=== PATIENT | male | born 1965 | race Hispanic/Latino ===

== ENCOUNTER 2021-05-09 07:17 | Observation (INO) | payer OTHER ==
--- OUTSIDE RECORDS SUMMARY | 2021-05-09 07:21 | XMS REPORT | Continuity of Care Document ---
:1965 Author Organization [facility] t Address [address] [place] [address] Care Team Providers Name Role Phone Kallie AL, A Primary Care Physician EL Attending Clinician Unavailable PHILIPPE Attending Clinician Unavailable JULIO Attending Clinician Unavailable Fabian AL Attending Clinician Kallie AL, A Attending Clinician Trell GOMES, A Attending Clinician El AL Attending Clinician MARYAM Attending Clinician Unavailable HIPOLITO DOMINGUEZ Attending Clinician Unavailable Cinthya KATE Attending Clinician Unavailable Carine HERMOSILLO Attending Clinician Unavailable Carlito AL Attending Clinician Doctor Unassigned, Name Attending Clinician Unavailable Alfreda REYES Attending Clinician Unavailable Blaze TRONCOSO Attending Clinician Unavailable MARYAM Admitting Clinician Unavailable HIPOLITO DOMINGUEZ Admitting Clinician Unavailable Cinthya KATE Admitting Clinician Unavailable Payers Payer Name Policy Policy Number Effective Expiration Source Type Date Date [place] [id number] 2018 [facility] [id number] 2018- PresentHMO/PPO/POS Problems Condition Condition Condition Status Onset Resolution Last Treating Co mments Source Name Details Category Date Date Treatment Clinician Date Hyponatrem Hyponatrem Disease Active 2020-03 U nivers ia ia 2-09 ity of 00:00: [address] Branch Acute Acute Disease Active 2020-03 Univers appendicit appendicit 2-08 it y of is is 00:00: [place] 00 Medical Branch Fatty Fatty Disease Active Univers liver liver 2-21 ity of 00:00: Medical Branch Elevated Elevated Disease Active Unive rs alkaline alkaline 2-03 ity of phosphat[place] e level 00 Medical Branch Iron Iron Disease Active [facility] deficiency deficiency 5-21 it y of 00:00: Medical Branch Diarrhea Diarrhea Disease Active Unive rs 7-15 ity of 00:00: [place] [facility] ED ED Disease Active 2017-03 Univers (erectile (erectile 0-08 ity of dysfunctio dysfunctio [place]: [place] n[place] 00 [facility] Anemia, Anemia, Disease Active Univers unspecifie unspecifie 6-29 it y of d type d type 00:00: Medical Branch Foot Foot Disease Active Overview: Univer s swelling swelling 6 Formattin ity of 00:00: g of this note Medical might be Branch different from the original. right Right Right Disease Active Univers shoulder shoulder 6-27 ity of pain, pain, 00:00: [place] unspecifie unspecifie 00 Me dical d d Branch chronicity chronicity Onychomyco Onychomyco Disease Active Overview : Univers sis of sis of 07 Formattin ity of toenail toenail 00:00: g of this note Medical might be Branch different from the original. 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 [place] of arthritis [place] right of right Medica l shoulder shoulder Branch region region History of History of Disease Resolve 2017-06-18 2017-06-18 Univers osteomyeli osteomyeli d 05-11 00:00:00 13:27:59 ity of tis tis 00:00: [place] 00 [facility] DKA DKA Disease Resolve [id number] 2017-06-18 Univers (diabetic (diabetic d 05-14 00:00:00 13:27:06 ity of ketoacidos ketoacidos [place]: [place] es[place] [address] [place] [address] Allergies, Adverse Reactions, Alerts Allergy Allergy Status Severity Reaction(s) Onset Inactive Treating Comm ents Source Name Type Date Date Clinician NO KNOWN Drug Active Univers ALLERGIE Class ity of S [facility] Social History Social Habit Start Date Stop Date Quantity Comments Source Exposure to Not sure [facility] SARS-CoV-2 (event) [facility] History of tobacco Cigarette Smoker University of use [facility] Alcohol intake 2021-03-17 2021-03-17 Current University of 00:00:00 00:00:00 non-drinker of [facility] [place] [facility] alcohol [place] (finding) Tobacco Comment 2019-04-10 2019-04-10 quit smoking in [facility] ersity of 00:00:00 00:00:00 2006 [facility] Cigarettes smoked 2017-03-13 2017-03-13 Univers ity of current (pack per 00:00:00 00:00:00 ) - Reported Branch Cigarette 2017-03-13 2017-03-13 University of pack-years 00:00:00 00:00:00 [facility] Tobacco use and 2017-03-13 2017-03-13 Former user Universi ty of exposure 00:00:00 00:00:00 [facility] Sex [birth year] Universit y of 00:00:00 00:00:00 [facility] Smoking Status Start Date Stop Date Source Former smoker 2017-03-13 00:00:00 2017-03-13 00:00:00 [facility] [place] [facility] Medications Ordered Filled Start Stop Current Ordering Indication Dosage Frequency Signature Comments Components Source Medication Medication Date Date Medication? Clinician (SIG) Name Name GLIMEPIRIDE Yes [id number] TAKE 1 Univers 4 mg tablet 2-08 TABLET BY ity of 00:00: MOUTH [place] 00 TWICE Medical DAILY Branch BEFORE BREAKFAST AND BEFORE SUPPER CARVEDILOL Yes [id number] Take 1 U nivers 12.5 mg 2-08 tablet by ity of tablet 00:00: mouth [place] 00 twice Medical daily Branch GLIMEPIRIDE Yes [id number] TAKE 1 Univers 4 mg tablet 2-08 TABLET BY ity of 00:00: MOUTH [place] 00 TWICE Medical DAILY Branch BEFORE BREAKFAST AND BEFORE SUPPER pantoprazol 2020-03 Yes [id number] 40mg Take 1 Univers e 40 mg EC 2-30 tablet by ity of tablet 00:00: mouth [place] 00 daily. Medical Branch pantoprazol 2020-03 Yes [id number] 40mg Take 1 Univers e 40 mg EC 2-30 tablet by ity of tablet 00:00: mouth [place] 00 daily. Medical Branch pantoprazol 2020-03 Yes [id number] 40mg Take 1 Univers e 40 mg EC 2-30 tablet by ity of tablet 00:00: mouth [place] 00 daily. Medical Branch pantoprazol 2020-03 Yes [id number] 40mg Take 1 Univers e 40 mg EC 2-30 tablet by ity of tablet 00:00: mouth [place] 00 daily. Medical Branch pantoprazol 2020-03 Yes [id number] 40mg Take 1 Univers e 40 mg EC 2-30 tablet by ity of tablet 00:00: mouth [place] 00 daily. Medical Branch pantoprazol 2020-03 Yes [id number] 40mg Take 1 Univers e 40 mg EC 2-30 tablet by ity of tablet 00:00: mouth [place] 00 daily. Medical Branch pantoprazol 2020-03 Yes [id number] 40mg Take 1 Univers e 40 mg EC 2-30 tablet by ity of tablet 00:00: mouth [place] 00 daily. Medical Branch pantoprazol 2020-03- Yes [id number] 40mg Take 1 Univers e 40 mg EC 2-10 01-10 tablet by ity of tablet 00:00: 05:59 mouth [place] 00 :00 daily for Medical 30 days. Branch pantoprazol 2020-03- Yes [id number] 40mg Take 1 Univers e 40 mg EC 2-10 01-10 tablet by ity of tablet 00:00: 05:59 mouth [place] 00 :00 daily for Medical 30 days. Branch ondansetron 2020-03 Yes [id number] 4mg Take 1 Univers (ZOFRAN 2-07 tablet by ity of ODT) 4 mg 00:00: mouth [place] disintegrat 00 every 8 Medic al ing tablet (eight) Branch hours as needed for Nausea and Vomiting (N/V). ondansetron 2020-03 Yes [id number] 4mg Take 1 Univers (ZOFRAN 2-07 tablet by ity of ODT) 4 mg 00:00: mouth [place] disintegrat 00 every 8 Medic al ing tablet (eight) Branch hours as needed for Nausea and Vomiting (N/V). ondansetron 2020-03 Yes [id number] 4mg Take 1 Univers (ZOFRAN 2-07 tablet by ity of ODT) 4 mg 00:00: mouth [place] disintegrat 00 every 8 Medic al ing tablet (eight) Branch hours as needed for Nausea and Vomiting (N/V). ondansetron 2020-03 Yes [id number] 4mg Take 1 Univers (ZOFRAN 2-07 tablet by ity of ODT) 4 mg 00:00: mouth [place] disintegrat 00 every 8 Medic al ing tablet (eight) Branch hours as needed for Nausea and Vomiting (N/V). ondansetron 2020-03 Yes [id number] 4mg Take 1 Univers (ZOFRAN 2-07 tablet by ity of ODT) 4 mg 00:00: mouth [place] disintegrat 00 every 8 Medic al ing tablet (eight) Branch hours as needed for Nausea and Vomiting (N/V). ondansetron 2020-03 Yes [id number] 4mg Take 1 Univers (ZOFRAN 2-07 tablet by ity of ODT) 4 mg 00:00: mouth [place] disintegrat 00 every 8 Medic al ing tablet (eight) Branch hours as needed for Nausea and Vomiting (N/V). ondansetron 2020-03 Yes [id number] 4mg Take 1 Univers (ZOFRAN 2-07 tablet by ity of ODT) 4 mg 00:00: mouth [place] disintegrat 00 every 8 Medic al ing tablet (eight) Branch hours as needed for Nausea and Vomiting (N/V). insulin NPH 0 Yes 30U inject 30 U nivers 100 unit/mL 7-26 Units ity of injection 00:00: under the [place] 00 skin every Medical morning Branch and evening. REPLACES LANTUS. insulin NPH 0 Yes 30U inject 30 U nivers 100 unit/mL 7-26 Units ity of injection 00:00: under the [place] 00 skin every Medical morning Branch and evening. REPLACES LANTUS. insulin NPH 0 Yes 30U inject 30 U nivers 100 unit/mL 7-26 Units ity of injection 00:00: under the [place] 00 skin every Medical morning Branch and evening. REPLACES LANTUS. insulin NPH 0 Yes 30U inject 30 U nivers 100 unit/mL 7-26 Units ity of injection 00:00: under the [place] 00 skin every Medical morning Branch and evening. REPLACES LANTUS. insulin NPH 0 Yes 30U inject 30 U nivers 100 unit/mL 7-26 Units ity of injection 00:00: under the [place] 00 skin every Medical morning Branch and evening. REPLACES LANTUS. insulin NPH 0 Yes 30U inject 30 U nivers 100 unit/mL 7-26 Units ity of injection 00:00: under the [place] 00 skin every Medical morning Branch and evening. REPLACES LANTUS. insulin NPH 0 Yes 30U inject 30 U nivers 100 unit/mL 7-26 Units ity of injection 00:00: under the [place] 00 skin every Medical morning Branch and evening. REPLACES LANTUS. glimepiride 2020-0 Yes [id number] 4mg Take 1 Univers 4 mg tablet 7-19 tablet by ity of 00:00: mouth 2 (two) Medical times Branch daily before breakfast and dinner. glimepiride 2020-0 Yes [id number] 4mg Take 1 Univers 4 mg tablet 7-19 tablet by ity of 00:00: mouth 2 (two) Medical times Branch daily before breakfast and dinner. glimepiride 2020-0 Yes [id number] 4mg Take 1 Univers 4 mg tablet 7-19 tablet by ity of 00:00: mouth 2 [place] 00 (two) Medical times Branch daily before breakfast and dinner. glimepiride 2020-0 Yes [id number] 4mg Take 1 Univers 4 mg tablet 7-19 tablet by ity of 00:00: mouth 2 [place] (two) Medical times Branch daily before breakfast and dinner. glimepiride 2020-0 Yes [id number] 4mg Take 1 Univers 4 mg tablet 7-19 tablet by ity of 00:00: mouth 2 [place] 00 (two) Medical times Branch daily before breakfast and dinner. glimepiride 2020-0 2- No [id number] 4mg Take 1 Univers 4 mg tablet 7-19 02-08 tablet by it y of 00:00: 00:00 mouth 2 [place] 00 :00 (two) Medical times Branch daily before breakfast and dinner. insulin 2020-0 Yes [id number] USE 1 Univ ers syringe-nee 5-28 SYRINGE ity o f dle U-100 1 00:00: ONCE DAILY [place] mL 31 gauge 00 Medical x 15/64" Branch Syrg insulin 202-0 Yes [id number] USE 1 Univ ers syringe-nee 5-28 SYRINGE ity o f dle U-100 1 00:00: ONCE DAILY [place] mL 31 gauge 00 Medical x 15/64" Branch Syrg insulin 2021-0 Yes [id number] USE 1 Univ ers syringe-nee 5-28 SYRINGE ity o f dle U-100 1 00:00: ONCE DAILY [place] mL 31 gauge 00 Medical x 15/64" Branch Syrg insulin 2021-0 Yes [id number] USE 1 Univ ers syringe-nee 5-28 SYRINGE ity o f dle U-100 1 00:00: ONCE DAILY [place] mL 31 gauge 00 Medical x 15/64" Branch Syrg insulin 2021-0 Yes [id number] USE 1 Univ ers syringe-nee 5-28 SYRINGE ity o f dle U-100 1 00:00: ONCE DAILY [place] mL 31 gauge 00 Medical x 15/64" Branch Syrg insulin 2021-0 Yes [id number] USE 1 Univ ers syringe-nee 5-28 SYRINGE ity o f dle U-100 1 00:00: ONCE DAILY [place] mL 31 gauge 00 Medical x 15/64" Branch Syrg insulin 2021-0 Yes [id number] USE 1 Univ ers syringe-nee 5-28 SYRINGE ity o f dle U-100 1 00:00: ONCE DAILY [place] mL 31 gauge 00 Medical x 15/64" Branch Syrg clindamycin 2020- No Cellulitis 300mg Take 1 Univers 300 mg 07-23 05-18 of toe, capsule by ity of capsule 00:00: 04:59 unspecified mouth 4 [place] 00 :00 laterality (four) Medical times Branch daily for 10 days. Insulin Yes Uncontrolle 48U inject 48 Univers Glargine 4-15 d type 2 Units ity of (LANTUS 00:00: diabetes under the [place] SOLOSTAR 00 mellitus skin every M edical U-100 with evening. Branch INSULIN) microalbumi 100 unit/mL rachel (3 mL) injection atorvastati Yes Hypercholes TAKE 1 Univers n 40 mg 4-15 terolemia TABLET BY it y of tablet 00:00: MOUTH ONCE [place] 00 DAILY AT Medical BEDTIME Branch glimepiride Yes Uncontrolle TAKE 3 Univers 2 mg tablet 4-15 d type 2 TABLETS BY ity of 00:00: diabetes MOUTH ONCE [place] 00 mellitus DAILY WITH Medic al with BREAKFAST Branch microalbumi rachel Insulin Yes Uncontrolle Use as U nivers [place], 4-15 d type 2 directed ity of Disposable, 00:00: diabetes to inject [place] (PEN 00 mellitus [employer] Medical NEEDLE) 32 with once daily Bra nch gauge x microalbumi " Ndle rachel sildenafiL Yes Erectile TAKE 1 U nivers 100 mg 4-15 dysfunction TABLET BY i ty of tablet 00:00: , MOUTH ONCE [place] 00 unspecified DAILY Medi charlie erectile NEEDED Branch dysfunction (ONE HOUR type PRIOR TO SEXUAL ACTIVITY) MAXIMUM OF ONE TABLET PER 24 HOURS dulaglutide Yes Uncontrolle 1.5mg inject 1.5 Univers (TRULICITY) 4-15 d type 2 mg under ity of 1.5 mg/0.5 00:00: diabetes the skin [place] mL PnIj 00 mellitus weekly. Medic al with Branch microalbumi rachel carvediloL Yes Essential 12.5mg Take 1 Univers 12.5 mg 4-15 hypertensio tablet by ity of tablet 00:00: n mouth 2 [place] 00 (two) Medical times Branch daily. terbinafine Yes Onychomycos 250mg Take 1 Univers HCL 250 mg 4-15 is of tablet by ity of tablet 00:00: toenail mouth [place] 00 daily. Medical Branch ferrous Yes Iron 324mg Take 1 Univers gluconate 4-15 deficiency tablet by ity of 324 mg 00:00: mouth [place] (37.5 mg 00 daily. Medical iron) Branch tablet lisinopriL Yes Essential 5mg Take 1 Univers 5 mg tablet 4-15 hypertensio tablet by ity of 00:00: n mouth [place] 00 daily. Medical Branch Insulin Yes Uncontrolle 48U inject 48 Univers Glargine 4-15 d type 2 Units ity of (LANTUS 00:00: diabetes under the [place] SOLOST[place] 00 mellitus skin every M edical U-100 with evening. Branch INSULIN) microalbumi 100 unit/mL rachel (3 mL) injection atorvastati Yes Hypercholes TAKE 1 Univers n 40 mg 4-15 terolemia TABLET BY it y of tablet 00:00: MOUTH ONCE [place] 00 DAILY AT Medical BEDTIME Branch glimepiride Yes Uncontrolle TAKE 3 Univers 2 mg tablet 4-15 d type 2 TABLETS BY ity of 00:00: diabetes MOUTH ONCE [place] 00 mellitus DAILY WITH Medic al with BREAKFAST Branch microalbumi rachel Insulin Yes Uncontrolle Use as U nivers [place], 4-15 d type 2 directed ity of Disposable, 00:00: diabetes to inject [place] (PEN 00 mellitus [employer] Medical NEEDLE) 32 with once daily Bra nch gauge x microalbumi " Ndle rachel atorvastati Yes [id number] TAKE 1 Univers n 40 mg 4-15 TABLET BY ity of tablet 00:00: MOUTH ONCE [place] 00 DAILY AT Medical BEDTIME Branch Insulin Yes [id number] Use as Uni vers [place], 4-15 directed ity of Disposable, 00:00: to inject [place] (PEN 00 [employer] Medical NEEDLE) 32 once daily Bra nch gauge x " Ndle sildenafiL Yes [id number] TAKE 1 Univers 100 mg 4-15 TABLET BY ity of tablet 00:00: MOUTH ONCE [place] 00 DAILY Medical NEEDED Branch (ONE HOUR PRIOR TO SEXUAL ACTIVITY) MAXIMUM OF ONE TABLET PER 24 HOURS carvediloL Yes [id number] 12.5mg Take 1 Univers 12.5 mg 4-15 tablet by ity of tablet 00:00: mouth 2 [place] 00 (two) Medical times Branch daily. terbinafine Yes [id number] 250mg Take 1 Univers HCL 250 mg 4-15 tablet by ity of tablet 00:00: mouth [place] 00 daily. Medical Branch ferrous Yes [id number] 324mg Take 1 Uni vers gluconate 4-15 tablet by ity o f 324 mg 00:00: mouth [place] (37.5 mg 00 daily. Medical iron) Branch tablet lisinopriL Yes [id number] 5mg Take 1 U nivers 5 mg tablet 4-15 tablet by ity of 00:00: mouth [place] 00 daily. Medical Branch sildenafiL Yes Erectile TAKE 1 U nivers 100 mg 4-15 dysfunction TABLET BY i ty of tablet 00:00: , MOUTH ONCE [place] 00 unspecified DAILY Medi charlie erectile NEEDED Branch dysfunction (ONE HOUR type PRIOR TO SEXUAL ACTIVITY) MAXIMUM OF ONE TABLET PER 24 HOURS atorvastati Yes [id number] TAKE 1 Univers n 40 mg 4-15 TABLET BY ity of tablet 00:00: MOUTH ONCE 00 DAILY AT Medical BEDTIME Branch Insulin Yes [id number] Use as Uni vers [place], 4-15 directed ity of Disposable, 00:00: to inject [place] (PEN 00 [employer] Medical NEEDLE) 32 once daily Bra [facility] gauge x 5/32" Ndle sildenafiL Yes [id number] TAKE 1 Univers 100 mg 4-15 TABLET BY ity of tablet 00:00: MOUTH ONCE [place] 00 DAILY Medical NEEDED Branch (ONE HOUR PRIOR TO SEXUAL ACTIVITY) MAXIMUM OF ONE TABLET PER 24 HOURS carvediloL Yes [id number] 12.5mg Take 1 Univers 12.5 mg 4-15 tablet by ity of tablet 00:00: mouth 2 [place] 00 (two) Medical times Branch daily. terbinafine Yes [id number] 250mg Take 1 Univers HCL 250 mg 4-15 tablet by ity of tablet 00:00: mouth [place] 00 daily. Medical Branch ferrous Yes [id number] 324mg Take 1 Uni vers gluconate 4-15 tablet by ity o f 324 mg 00:00: mouth [place] (37.5 mg 00 daily. Medical iron) Branch tablet lisinopriL Yes [id number] 5mg Take 1 U nivers 5 mg tablet 4-15 tablet by ity of 00:00: mouth [place] 00 daily. Medical Branch atorvastati Yes [id number] TAKE 1 Univers n 40 mg 4-15 TABLET BY ity of tablet 00:00: MOUTH ONCE [place] 00 DAILY AT Medical BEDTIME Branch Insulin Yes [id number] Use as Uni vers [place], 4-15 directed ity of Disposable, 00:00: to inject [place] (PEN 00 [employer] Medical NEEDLE) 32 once daily Bra [facility] gauge x 5/32" Ndle sildenafiL Yes [id number] TAKE 1 Univers 100 mg 4-15 TABLET BY ity of tablet 00:00: MOUTH ONCE [place] 00 DAILY Medical NEEDED Branch (ONE HOUR PRIOR TO SEXUAL ACTIVITY) MAXIMUM OF ONE TABLET PER 24 HOURS dulaglutide Yes Uncontrolle 1.5mg inject 1.5 Univers (TRULICITY) 4-15 d type 2 mg under ity of 1.5 mg/0.5 00:00: diabetes the skin [place] mL PnIj 00 mellitus weekly. Medic al with Branch microalbumi rachel carvediloL Yes [id number] 12.5mg Take 1 Univers 12.5 mg 4-15 tablet by ity of tablet 00:00: mouth 2 [place] 00 (two) Medical times Branch daily. terbinafine Yes [id number] 250mg Take 1 Univers HCL 250 mg 4-15 tablet by ity of tablet 00:00: mouth [place] 00 daily. Medical Branch ferrous Yes [id number] 324mg Take 1 Uni vers gluconate 4-15 tablet by ity o f 324 mg 00:00: mouth [place] (37.5 mg 00 daily. Medical iron) Branch tablet lisinopriL Yes [id number] 5mg Take 1 U nivers 5 mg tablet 4-15 tablet by ity of 00:00: mouth [place] 00 daily. Medical Branch atorvastati Yes [id number] TAKE 1 Univers n 40 mg 4-15 TABLET BY ity of tablet 00:00: MOUTH ONCE [place] 00 DAILY AT Medical BEDTIME Branch Insulin Yes [id number] Use as Uni vers [place], 4-15 directed ity of Disposable, 00:00: to inject [place] (PEN 00 [employer] Medical NEEDLE) 32 once daily Bra nch gauge x 5/32" Ndle sildenafiL Yes [id number] TAKE 1 Univers 100 mg 4-15 TABLET BY ity of tablet 00:00: MOUTH ONCE [place] 00 DAILY Medical NEEDED Branch (ONE HOUR PRIOR TO SEXUAL ACTIVITY) MAXIMUM OF ONE TABLET PER 24 HOURS carvediloL Yes [id number] 12.5mg Take 1 Univers 12.5 mg 4-15 tablet by ity of tablet 00:00: mouth 2 [place] 00 (two) Medical times Branch daily. terbinafine Yes [id number] 250mg Take 1 Univers HCL 250 mg 4-15 tablet by ity of tablet 00:00: mouth [place] 00 daily. Medical Branch ferrous Yes [id number] 324mg Take 1 Uni vers gluconate 4-15 tablet by ity o f 324 mg 00:00: mouth [place] (37.5 mg 00 daily. Medical iron) Branch tablet carvediloL Yes Essential 12.5mg Take 1 Univers 12.5 mg 4-15 hypertensio tablet by ity of tablet 00:00: n mouth 2 [place] 00 (two) Medical times Branch daily. lisinopriL Yes [id number] 5mg Take 1 U nivers 5 mg tablet 4-15 tablet by ity of 00:00: mouth [place] 00 daily. Medical Branch atorvastati Yes [id number] TAKE 1 Univers n 40 mg 4-15 TABLET BY ity of tablet 00:00: MOUTH ONCE [place] 00 DAILY AT Medical BEDTIME Branch Insulin Yes [id number] Use as Uni vers [place], 4-15 directed ity of Disposable, 00:00: to inject [place] (PEN 00 [employer] Medical NEEDLE) 32 once daily Bra nch gauge x 5/32" Ndle sildenafiL Yes [id number] TAKE 1 Univers 100 mg 4-15 TABLET BY ity of tablet 00:00: MOUTH ONCE [place] 00 DAILY Medical NEEDED Branch (ONE HOUR PRIOR TO SEXUAL ACTIVITY) MAXIMUM OF ONE TABLET PER 24 HOURS carvediloL Yes [id number] 12.5mg Take 1 Univers 12.5 mg 4-15 tablet by ity of tablet 00:00: mouth 2 [place] 00 (two) Medical times Branch daily. terbinafine Yes [id number] 250mg Take 1 Univers HCL 250 mg 4-15 tablet by ity of tablet 00:00: mouth [place] 00 daily. Medical Branch ferrous Yes [id number] 324mg Take 1 Uni vers gluconate 4-15 tablet by ity o f 324 mg 00:00: mouth [place] (37.5 mg 00 daily. Medical iron) Branch tablet lisinopriL Yes [id number] 5mg Take 1 U nivers 5 mg tablet 4-15 tablet by ity of 00:00: mouth [place] 00 daily. Medical Branch atorvastati Yes [id number] TAKE 1 Univers n 40 mg 4-15 TABLET BY ity of tablet 00:00: MOUTH ONCE [place] 00 DAILY AT Medical BEDTIME Branch Insulin Yes [id number] Use as Uni vers [place], 4-15 directed ity of Disposable, 00:00: to inject [place] (PEN 00 [employer] Medical NEEDLE) 32 once daily Bra [facility] gauge x 5/32" Ndle terbinafine Yes Onychomycos 250mg Take 1 Univers HCL 250 mg 4-15 is of tablet by ity of tablet 00:00: toenail mouth [place] 00 daily. Medical Branch sildenafiL Yes [id number] TAKE 1 Univers 100 mg 4-15 TABLET BY ity of tablet 00:00: MOUTH ONCE [place] 00 DAILY Medical NEEDED Branch (ONE HOUR PRIOR TO SEXUAL ACTIVITY) MAXIMUM OF ONE TABLET PER 24 HOURS carvediloL Yes [id number] 12.5mg Take 1 Univers 12.5 mg 4-15 tablet by ity of tablet 00:00: mouth 2 [place] 00 (two) Medical times Branch daily. terbinafine Yes [id number] 250mg Take 1 Univers HCL 250 mg 4-15 tablet by ity of tablet 00:00: mouth [place] 00 daily. Medical Branch ferrous Yes [id number] 324mg Take 1 Uni vers gluconate 4-15 tablet by ity o f 324 mg 00:00: mouth [place] (37.5 mg 00 daily. Medical iron) Branch tablet lisinopriL Yes [id number] 5mg Take 1 U nivers 5 mg tablet 4-15 tablet by ity of 00:00: mouth [place] 00 daily. Medical Branch atorvastati Yes [id number] TAKE 1 Univers n 40 mg 4-15 TABLET BY ity of tablet 00:00: MOUTH ONCE [place] 00 DAILY AT Medical BEDTIME Branch Insulin Yes [id number] Use as Uni vers [place], 4-15 directed ity of Disposable, 00:00: to inject [place] (PEN 00 [employer] Medical NEEDLE) 32 once daily Bra [facility] gauge x 5/32" Ndle sildenafiL Yes [id number] TAKE 1 Univers 100 mg 4-15 TABLET BY ity of tablet 00:00: MOUTH ONCE [place] 00 DAILY Medical NEEDED Branch (ONE HOUR PRIOR TO SEXUAL ACTIVITY) MAXIMUM OF ONE TABLET PER 24 HOURS terbinafine Yes [id number] 250mg Take 1 Univers HCL 250 mg 4-15 tablet by ity of tablet 00:00: mouth [place] 00 daily. Medical Branch ferrous Yes [id number] 324mg Take 1 Uni vers gluconate 4-15 tablet by ity o f 324 mg 00:00: mouth [place] (37.5 mg 00 daily. Medical iron) Branch tablet ferrous Yes Iron 324mg Take 1 Univers gluconate 4-15 deficiency tablet by ity of 324 mg 00:00: mouth [place] (37.5 mg 00 daily. Medical iron) Branch tablet lisinopriL Yes [id number] 5mg Take 1 U nivers 5 mg tablet 4-15 tablet by ity of 00:00: mouth [place] 00 daily. Medical Branch lisinopriL Yes Essential 5mg Take 1 Univers 5 mg tablet 4-15 hypertensio tablet by ity of 00:00: n mouth [place] 00 daily. Medical Branch carvediloL 2021- No [id number] 12.5mg Take 1 Univers 12.5 mg 4-15 02-08 tablet by ity of tablet 00:00: 00:00 mouth 2 [place] 00 :00 (two) Medical times Branch daily. diphenoxyla Yes Diarrhea, 1{tbl} Take 1 Univers te-atropine 7-14 unspecified tablet by ity of 2.5-0.025 00:00: type mouth [place] mg per 00 every 6 Medical tablet (six) Branch hours as needed (diarrhea) . diphenoxyla 2020-0 Yes Diarrhea, 1{tbl} Take 1 Univers te-atropine 7-14 unspecified tablet by ity of 2.5-0.025 00:00: type mouth [place] mg per 00 every 6 Medical tablet (six) Branch hours as needed (diarrhea) . mupirocin 2 2019-0 Yes Ankle Apply to Univers % ointment 2-03 wound, area(s) 3 it y of 00:00: left, (three) [place] 00 initial times Medical encounter daily. Branch mupirocin 2 2020-0 Yes Ankle Apply to Univers % ointment 2-03 wound, area(s) 3 it y of 00:00: left, (three) [place] 00 initial times Medical encounter daily. Branch Immunizations Ordered Filled Immunization Date Status Comments [facility] e Immunization Name Name SARS-COV-2 COVID-19 2021-02-16 Completed Unive rsity of PFIZER VACCINE 00:00:00 [facility] Influenza Virus 2021-02-16 Completed Universit y of Vaccine 00:00:00 [facility] SARS-COV-2 COVID-19 2021-02-16 Completed Unive rsity of PFIZER VACCINE 00:00:00 [facility] Influenza Virus 2021-02-16 Completed Universit y of Vaccine 00:00:00 [facility] SARS-COV-2 COVID-19 2021-02-16 Completed Unive rsity of PFIZER VACCINE 00:00:00 [facility] Influenza Virus 2021-02-16 Completed Universit y of Vaccine 00:00:00 [facility] SARS-COV-2 COVID-19 2021-02-16 Completed Unive rsity of PFIZER VACCINE 00:00:00 [facility] Influenza Virus 2021-02-16 Completed Universit y of Vaccine 00:00:00 [facility] SARS-COV-2 COVID-19 2021-02-16 Completed Unive rsity of PFIZER VACCINE 00:00:00 [facility] Influenza Virus 2021-02-16 Completed Universit y of Vaccine 00:00:00 [facility] SARS-COV-2 COVID-19 2021-02-16 Completed Unive rsity of PFIZER VACCINE 00:00:00 [facility] Influenza Virus 2021-02-16 Completed Universit y of Vaccine 00:00:00 [facility] SARS-COV-2 COVID-19 2021-02-16 Completed Unive rsity of PFIZER VACCINE 00:00:00 [facility] Influenza Virus 2021-02-16 Completed Universit y of Vaccine 00:00:00 [facility] SARS-COV-2 COVID-19 2020-06-25 Completed Unive rsity of PFIZER VACCINE 00:00:00 [facility] SARS-COV-2 COVID-19 2020-06-25 Completed Unive rsity of PFIZER VACCINE 00:00:00 [facility] SARS-COV-2 COVID-19 2020-06-25 Completed Unive rsity of PFIZER VACCINE 00:00:00 [facility] SARS-COV-2 COVID-19 2020-06-25 Completed Unive rsity of PFIZER VACCINE 00:00:00 [facility] SARS-COV-2 COVID-19 2020-06-25 Completed Unive rsity of PFIZER VACCINE 00:00:00 [facility] SARS-COV-2 COVID-19 2020-06-25 Completed Unive rsity of PFIZER VACCINE 00:00:00 [facility] SARS-COV-2 COVID-19 2020-06-25 Completed Unive rsity of PFIZER VACCINE 00:00:00 [facility] SARS-COV-2 COVID-19 2020-06-25 Completed Unive rsity of PFIZER VACCINE 00:00:00 [facility] SARS-COV-2 COVID-19 2020-06-25 Completed Unive rsity of PFIZER VACCINE 00:00:00 [facility] SARS-COV-2 COVID-19 2020-06-04 Completed Unive rsity of PFIZER VACCINE 00:00:00 [facility] SARS-COV-2 COVID-19 2020-06-04 Completed Unive rsity of PFIZER VACCINE 00:00:00 [facility] SARS-COV-2 COVID-19 2020-06-04 Completed Unive rsity of PFIZER VACCINE 00:00:00 [facility] SARS-COV-2 COVID-19 2020-06-04 Completed Unive rsity of PFIZER VACCINE 00:00:00 [facility] SARS-COV-2 COVID-19 2020-06-04 Completed Unive rsity of PFIZER VACCINE 00:00:00 [facility] SARS-COV-2 COVID-19 2020-06-04 Completed Unive rsity of PFIZER VACCINE 00:00:00 [facility] SARS-COV-2 COVID-19 2020-06-04 Completed Unive rsity of PFIZER VACCINE 00:00:00 [facility] SARS-COV-2 COVID-19 2020-06-04 Completed Unive rsity of PFIZER VACCINE 00:00:00 [facility] SARS-COV-2 COVID-19 2020-06-04 Completed Unive rsity of PFIZER VACCINE 00:00:00 [facility] Influenza Virus 2019-12-15 Completed Universit y of Vaccine Recomb Quad 00:00:00 [place] [facility] IM, Preserv and ABX Branc h Free 18-64 YRS Influenza Virus 2019-12-15 Completed Universit y of Vaccine Recomb Quad 00:00:00 [place] [facility] IM, Preserv and ABX Branc h Free 18-64 YRS Influenza Virus 2019-12-15 Completed Universit y of Vaccine Recomb Quad 00:00:00 [place] [facility] IM, Preserv and ABX Branc h Free 18-64 YRS Influenza Virus 2019-12-15 Completed Universit y of Vaccine Recomb Quad 00:00:00 [place] [facility] IM, Preserv and ABX Branc h Free 18-64 YRS Influenza Virus 2019-12-15 Completed Universit y of Vaccine Recomb Quad 00:00:00 [place] [facility] IM, Preserv and ABX Branc h Free 18-64 YRS Influenza Virus 2019-12-15 Completed Universit y of Vaccine Recomb Quad 00:00:00 [place] [facility] IM, Preserv and ABX Branc h Free 18-64 YRS Influenza Virus 2019-12-15 Completed Universit y of Vaccine Recomb Quad 00:00:00 [place] [facility] IM, Preserv and ABX Branc h Free 18-64 YRS Influenza Virus 2019-12-15 Completed Universit y of Vaccine Recomb Quad 00:00:00 [place] [facility] IM, Preserv and ABX Branc h Free 18-64 YRS Influenza Virus 2019-12-15 Completed Universit y of Vaccine Recomb Quad 00:00:00 [place] [facility] IM, Preserv and ABX Branc h Free 18-64 YRS Influenza Virus 2019-06-27 Completed Universit y of Vaccine Quad .5 mL 00:00:00 [place] [facility] IM 6+ MO Branch Influenza Virus 2019-06-27 Completed Universit y of Vaccine Quad .5 mL 00:00:00 [place] [facility] IM 6+ MO Branch Influenza Virus 2019-06-27 Completed Universit y of Vaccine Quad .5 mL 00:00:00 [place] [facility] IM 6+ MO Branch Influenza Virus 2019-06-27 Completed Universit y of Vaccine Quad .5 mL 00:00:00 [place] [facility] IM 6+ MO Branch Influenza Virus 2019-06-27 Completed Universit y of Vaccine Quad .5 mL 00:00:00 [place] [facility] IM 6+ MO Branch Influenza Virus 2019-06-27 Completed Universit y of Vaccine Quad .5 mL 00:00:00 [place] [facility] IM 6+ MO Branch Influenza Virus 2019-06-27 Completed Universit y of Vaccine Quad .5 mL 00:00:00 [place] [facility] IM 6+ MO Branch Influenza Virus 2019-06-27 Completed Universit y of Vaccine Quad .5 mL 00:00:00 [place] [facility] IM 6+ MO Branch Influenza Virus 2019-06-27 Completed Universit y of Vaccine Quad .5 mL 00:00:00 [place] [facility] IM 6+ MO Branch Influenza Virus 2019-01-06 Completed Universit y of Vaccine Quad .5 mL 00:00:00 [place] [facility] IM 6+ MO Branch Influenza Virus 2019-01-06 Completed Universit y of Vaccine Quad .5 mL 00:00:00 [place] [facility] IM 6+ MO Branch Influenza Virus 2019-01-06 Completed Universit y of Vaccine Quad .5 mL 00:00:00 [place] [facility] IM 6+ MO Branch Influenza Virus 2019-01-06 Completed Universit y of Vaccine Quad .5 mL 00:00:00 [place] [facility] IM 6+ MO Branch Influenza Virus 2019-01-06 Completed Universit y of Vaccine Quad .5 mL 00:00:00 [place] [facility] IM 6+ MO Branch Influenza Virus 2019-01-06 Completed Universit y of Vaccine Quad .5 mL 00:00:00 [place] [facility] IM 6+ MO Branch Influenza Virus 2019-01-06 Completed Universit y of Vaccine Quad .5 mL 00:00:00 [place] [facility] IM 6+ MO Branch Influenza Virus 2019-01-06 Completed Universit y of Vaccine Quad .5 mL 00:00:00 [place] [facility] IM 6+ MO Branch Influenza Virus 2019-01-06 Completed Universit y of Vaccine Quad .5 mL 00:00:00 [facility] IM 6+ MO Branch Zoster Vaccine 2018-10-18 Completed University of Recombinant 00:00:00 [facility] Zoster Vaccine 2018-10-18 Completed University of Recombinant 00:00:00 [facility] Zoster Vaccine 2018-10-18 Completed University of Recombinant 00:00:00 [facility] Zoster Vaccine 2018-10-18 Completed University of Recombinant 00:00:00 [facility] Zoster Vaccine 2018-10-18 Completed University of Recombinant 00:00:00 [facility] Zoster Vaccine 2018-10-18 Completed University of Recombinant 00:00:00 [facility] Zoster Vaccine 2018-10-18 Completed University of Recombinant 00:00:00 [facility] Zoster Vaccine 2018-10-18 Completed University of Recombinant 00:00:00 [facility] Zoster Vaccine 2018-10-18 Completed University of Recombinant 00:00:00 [facility] Zoster Vaccine 2018-08-15 Completed University of Recombinant 00:00:00 [facility] HEP B, Adult Dosage 2018-08-15 Completed Unive rsity of 00:00:00 [facility] Zoster Vaccine 2018-08-15 Completed University of Recombinant 00:00:00 [facility] HEP B, Adult Dosage 2018-08-15 Completed Unive rsity of 00:00:00 [facility] Zoster Vaccine 2018-08-15 Completed University of Recombinant 00:00:00 [facility] HEP B, Adult Dosage 2018-08-15 Completed Unive rsity of 00:00:00 [facility] Zoster Vaccine 2018-08-15 Completed University of Recombinant 00:00:00 [facility] HEP B, Adult Dosage 2018-08-15 Completed Unive rsity of 00:00:00 [facility] Zoster Vaccine 2018-08-15 Completed University of Recombinant 00:00:00 [facility] HEP B, Adult Dosage 2018-08-15 Completed Unive rsity of 00:00:00 [facility] Zoster Vaccine 2018-08-15 Completed University of Recombinant 00:00:00 [facility] HEP B, Adult Dosage 2018-08-15 Completed Unive rsity of 00:00:00 [facility] Zoster Vaccine 2018-08-15 Completed University of Recombinant 00:00:00 [facility] HEP B, Adult Dosage 2018-08-15 Completed Unive rsity of 00:00:00 [facility] Zoster Vaccine 2018-08-15 Completed University of Recombinant 00:00:00 [facility] HEP B, Adult Dosage 2018-08-15 Completed Unive rsity of 00:00:00 [facility] Zoster Vaccine 2018-08-15 Completed University of Recombinant 00:00:00 [facility] HEP B, Adult Dosage 2018-08-15 Completed Unive rsity of 00:00:00 [facility] HEP B, Adult Dosage 2018-07-12 Completed Unive rsity of 00:00:00 [facility] Hepatitis A Adult 2018-07-12 Completed Univers ity of 00:00:00 [facility] Pneumococcal 2018-07-12 Completed University o f Polysaccharide, 00:00:00 [place] [facility] ical PPSV23 (PNEUMOVAX) Branch HEP B, Adult Dosage 2018-07-12 Completed Unive rsity of 00:00:00 [facility] Hepatitis A Adult 2018-07-12 Completed Univers ity of 00:00:00 [facility] Pneumococcal 2018-07-12 Completed University o f Polysaccharide, 00:00:00 [place] [facility] ical PPSV23 (PNEUMOVAX) Branch HEP B, Adult Dosage 2018-07-12 Completed Unive rsity of 00:00:00 [facility] Hepatitis A Adult 2018-07-12 Completed Univers ity of 00:00:00 [facility] Pneumococcal 2018-07-12 Completed University o f Polysaccharide, 00:00:00 [place] [facility] ical PPSV23 (PNEUMOVAX) Branch HEP B, Adult Dosage 2018-07-12 Completed Unive rsity of 00:00:00 [facility] Hepatitis A Adult 2018-07-12 Completed Univers ity of 00:00:00 [facility] Pneumococcal 2018-07-12 Completed University o f Polysaccharide, 00:00:00 [place] [facility] ical PPSV23 (PNEUMOVAX) Branch HEP B, Adult Dosage 2018-07-12 Completed Unive rsity of 00:00:00 [facility] Hepatitis A Adult 2018-07-12 Completed Univers ity of 00:00:00 [facility] Pneumococcal 2018-07-12 Completed University o f Polysaccharide, 00:00:00 [place] [facility] ical PPSV23 (PNEUMOVAX) Branch HEP B, Adult Dosage 2018-07-12 Completed Unive rsity of 00:00:00 [facility] Hepatitis A Adult 2018-07-12 Completed Univers ity of 00:00:00 [facility] Pneumococcal 2018-07-12 Completed University o f Polysaccharide, 00:00:00 [place] [facility] ical PPSV23 (PNEUMOVAX) Branch HEP B, Adult Dosage 2018-07-12 Completed Unive rsity of 00:00:00 [facility] Hepatitis A Adult 2018-07-12 Completed Univers ity of 00:00:00 [facility] Pneumococcal 2018-07-12 Completed University o f Polysaccharide, 00:00:00 [place] [facility] ical PPSV23 (PNEUMOVAX) Branch HEP B, Adult Dosage 2018-07-12 Completed Unive rsity of 00:00:00 [facility] Hepatitis A Adult 2018-07-12 Completed Univers ity of 00:00:00 [facility] Pneumococcal 2018-07-12 Completed University o f Polysaccharide, 00:00:00 [place] [facility] ical PPSV23 (PNEUMOVAX) Branch HEP B, Adult Dosage 2018-07-12 Completed Unive rsity of 00:00:00 [facility] Hepatitis A Adult 2018-07-12 Completed Univers ity of 00:00:00 [facility] Pneumococcal 2018-07-12 Completed University o f Polysaccharide, 00:00:00 [place] [facility] ical PPSV23 (PNEUMOVAX) Branch Pneumococcal 2017-05-15 Completed University o f Polysaccharide, 00:00:00 [place] [facility] ical PPSV23 (PNEUMOVAX) Branch Pneumococcal 2017-05-15 Completed University o f Polysaccharide, 00:00:00 [place] [facility] ical PPSV23 (PNEUMOVAX) Branch Pneumococcal 2017-05-15 Completed University o f Polysaccharide, 00:00:00 [place] [facility] ical PPSV23 (PNEUMOVAX) Branch Pneumococcal 2017-05-15 Completed University o f Polysaccharide, 00:00:00 [place] [facility] ical PPSV23 (PNEUMOVAX) Branch Pneumococcal 2017-05-15 Completed University o f Polysaccharide, 00:00:00 [place] [facility] ical PPSV23 (PNEUMOVAX) Branch Pneumococcal 2017-05-15 Completed University o f Polysaccharide, 00:00:00 [place] [facility] ical PPSV23 (PNEUMOVAX) Branch Pneumococcal 2017-05-15 Completed University o f Polysaccharide, 00:00:00 [place] [facility] ical PPSV23 (PNEUMOVAX) Branch Pneumococcal 2017-05-15 Completed University o f Polysaccharide, 00:00:00 [place] [facility] ical PPSV23 (PNEUMOVAX) Branch Pneumococcal 2017-05-15 Completed University o f Polysaccharide, 00:00:00 [facility] PPSV23 (PNEUMOVAX) Branch Influenza Virus 2017-03-15 Completed Universit y of Vaccine Quad IM 3+ 00:00:00 [facility] Influenza Virus 2017-03-15 Completed Universit y of Vaccine Quad IM 3+ 00:00:00 [facility] Influenza Virus 2017-03-15 Completed Universit y of Vaccine Quad IM 3+ 00:00:00 [facility] Influenza Virus 2017-03-15 Completed Universit y of Vaccine Quad IM 3+ 00:00:00 [facility] Influenza Virus 2017-03-15 Completed Universit y of Vaccine Quad IM 3+ 00:00:00 [facility] Influenza Virus 2017-03-15 Completed Universit y of Vaccine Quad IM 3+ 00:00:00 [facility] Influenza Virus 2017-03-15 Completed Universit y of Vaccine Quad IM 3+ 00:00:00 [facility] Influenza Virus 2017-03-15 Completed Universit y of Vaccine Quad IM 3+ 00:00:00 [facility] Influenza Virus 2017-03-15 Completed Universit y of Vaccine Quad IM 3+ 00:00:00 [facility] Influenza Virus 2016-09-16 Completed Universit y of Vaccine 00:00:00 [facility] Influenza Virus 2016-09-16 Completed Universit y of Vaccine 00:00:00 [facility] Influenza Virus 2016-09-16 Completed Universit y of Vaccine 00:00:00 [facility] Influenza Virus 2016-09-16 Completed Universit y of Vaccine 00:00:00 [facility] Influenza Virus 2016-09-16 Completed Universit y of Vaccine 00:00:00 [facility] Influenza Virus 2016-09-16 Completed Universit y of Vaccine 00:00:00 [facility] Influenza Virus 2016-09-16 Completed Universit y of Vaccine 00:00:00 [facility] Influenza Virus 2016-09-16 Completed Universit y of Vaccine 00:00:00 [facility] Influenza Virus 2016-09-16 Completed Universit y of Vaccine 00:00:00 [facility] Vital Signs Vital Name Observation Time Observation Value Comments Source Systolic blood 2021-03-17 21:32:00 134 mm[Hg] Univer sity of pressure [facility] Diastolic blood 2021-03-17 21:32:00 83 mm[Hg] Unive rsity of pressure [facility] Heart rate 2021-03-17 21:32:00 79 /min [facility] [place] [facility] Body temperature 2021-03-17 21:32:00 36.17 [facility] Respiratory rate 2021-03-17 21:32:00 20 /min Univ ersity of [facility] Body height 2021-03-17 21:32:00 157.5 cm Universi ty of [facility] Body weight 2021-03-17 21:32:00 65.681 kg Universi ty of [facility] BMI 2021-03-17 21:32:00 26.48 kg/m2 Universi ty [facility] Oxygen saturation in 2021-03-17 21:32:00 98 /min University of Arterial blood by [facility] [place] [facility] Pulse oximetry Branch Systolic blood 2020-07-23 15:00:00 125 mm[Hg] [facility]iver [facility]ity [facility] Diastolic blood 2020-07-23 15:00:00 87 mm[Hg] Unive rsity of pressure [facility] Heart rate 2020-07-23 15:00:00 83 /min Universi ty [facility] Respiratory rate 2020-07-23 15:00:00 18 /min Univ [facility] Oxygen saturation in 2020-07-23 15:00:00 98 /min University of Arterial blood by [facility] [place] [facility] Pulse oximetry Branch Body temperature 2020-07-23 13:31:00 36.22 Ilda [facility] Body weight 2020-07-23 13:31:00 63.504 kg [facility] [place] [facility] [place] BMI 2020-07-23 13:31:00 26.45 kg/m2 [facility] Procedures Procedure Date / Time Performed Performing Clinician Sourc e XR ANKLE 3+ VW RIGHT 2020-07-23 14:40:48 Mason Esteban [facility] XR FOOT 3+ VW RIGHT 2020-07-23 14:40:48 Mason Esteban [facility] CONSENT/REFUSAL FOR 2020-07-23 13:21:37 Doctor Unassigned, No Un [facility] DIAGNOSIS AND Name Medical Branch TREATMENT Plan of Care Planned Activity Planned Date Details Comments Source Future Scheduled 2027-08-22 Screening for [facility] [place] Test 00:00:00 malignant neoplasm of Medica l Branch colon (procedure) [code = 618375077] Future Scheduled 2027-08-22 Screening for [facility] [place] Test 00:00:00 malignant neoplasm of Medica l Branch colon (procedure) [code = 937747677] Future Scheduled 2027-08-22 Screening for [facility] [place] Test 00:00:00 malignant neoplasm of Medica l Branch colon (procedure) [code = 209841768] Future Scheduled 2027-08-22 Screening for [facility] [place] Test 00:00:00 malignant neoplasm of Medica l Branch colon (procedure) [code = 422920819] Future Scheduled 2021-07-01 Creatinine measurement [facility] [place] Test 00:00:00 (procedure) [code = Medical Branch 41232461] Future Scheduled 2021-07-01 Calculated low density [facility] [place] Test 00:00:00 lipoprotein Medical Branch cholesterol level (procedure) [code = 534449695] Future Scheduled 2021-07-01 Creatinine measurement [facility] [place] Test 00:00:00 (procedure) [code = Medical Branch [id number]] Future Scheduled 2021-07-01 Calculated low density [facility] [place] Test 00:00:00 lipoprotein Medical Branch cholesterol level (procedure) [code = 624869949] Future Scheduled 2021-06-17 Examination of retina [facility] [place] Test 00:00:00 (procedure) [code = Medical Branch 366355382] Future Scheduled 2021-06-17 Examination of retina [facility] [place] Test 00:00:00 (procedure) [code = Medical Branch 862741731] Future Scheduled 2021 Depression screening [facility] [place] Test 00:00:00 (procedure) [code = Medical Branch 627433965] Future Scheduled 2021 Diabetic foot [facility] [place] Test 00:00:00 examination Medical Branch (regime/therapy) [code = 811673215] Future Scheduled 2021 Microalbumin [facility] [place] Test 00:00:00 measurement, urine, Medical Branch quantitative (procedure) [code = 128478413] Future Scheduled 2021 Depression screening [facility] [place] Test 00:00:00 (procedure) [code = Medical Branch 249252553] Future Scheduled 2021 Diabetic foot [facility] Test 00:00:00 examination Medical Branch (regime/therapy) [code = 684467503] Future Scheduled 2021 Microalbumin [facility] Test 00:00:00 measurement, urine, Medical Branch quantitative (procedure) [code = 061342859] Future Scheduled 2020-12-31 Hemoglobin A1c [facility] Test 00:00:00 measurement Medical Branch (procedure) [code = 76701454] Future Scheduled 2020-12-31 Hemoglobin A1c [facility] Test 00:00:00 measurement Medical Branch (procedure) [code = 05460098] Future Scheduled 2014 [facility] blood in feces Medical Branc h (procedure) [code = 528572430] Future Scheduled 2014 Stool DNA-based [facility] Test 00:00:00 colorectal cancer Medical Br anch screening (procedure) [code = 697192313985466] Future Scheduled 2014 [facility] sigmoidoscopy Medical Branch (procedure) [code = 34200146] Future Scheduled 2014 [facility] blood in feces Medical Branc h (procedure) [code = 866234352] Future Scheduled 2014 Stool DNA-based [facility] ty [facility] Test 00:00:00 colorectal cancer Medical Br anch screening (procedure) [code = 410281368063188] Future Scheduled 2014 [facility]ible [facility]:00 sigmoidoscopy Medical Branch (procedure) [code = 88407894] Future Scheduled 1983 DTaP,Tdap,and Td Univers ity [facility] Test 00:00:00 Vaccines (1 - Tdap) Medical Branch [code = DTaP,Tdap,and Td Vaccines (1 - Tdap)] Future Scheduled 1983 DTaP,Tdap,and Td [facility] [place] Test 00:00:00 Vaccines (1 - Tdap) Medical Branch [code = DTaP,Tdap,and Td Vaccines (1 - Tdap)] Encounters Start End Encounter Admission Attending Care Care Encounter Source Date/Time Date/Time Type Type Clinicians Facility Department ID 2021-09-15 2021-09-15 Outpatient R [facility] [id number] Univers 16:30:00 16:30:00 SOPHIE [id number] ity [facility] 2021-06-14 2021-06-14 Outpatient R [facility] [id number] Univers 13:30:00 13:30:[id number] 2021-05-[facility] 2021-05-09 Outpatient R J[facility] [id number] Univers 16:00:00 16:00:00 [facility] [id number] [facility] 2021-05-09 2021-05-09 [facility] [id number] Univers 16:00:00 16:00:[facility] 2021-04-26 2021-04-26 [facility] [id number] Univers 00:00:00 00:00:00 [place] [id number] i ty [facility] [id number] [place] [facility] [id number] [facility] [address] [facility] 2021-04-26 2021-04-26 [facility] [id number] Univers 00:00:00 00:00:00 Wondiful A HEALTH [id number] ity [facility] [id number] Samy as PROFESSIO [phone] [facility] [address] OFFICE BUILDING ONE 2021-04-21 2021-04-21 Outpatient R JULIO [facility] [id number] Univers 15:30:00 15:30:00 [facility]CRUZ [id number] [facility] 2021-04-19 [facility] [id number] Univers 14:30:00 14:30:00 AURY [id number] [facility] 2021-04-08 2021-04-08 [facility] [id number] Univers 00:00:00 00:00:00 Wondiful A HEALTH [id number] ity of [place] [id number] Samy as PROFESSIO [phone] [facility] [address] [facility] ONE 2021-04-07 2021-04-07 Refmerna [facility] [id number] Univers 00:00:00 00:00:00 Wondiful A HEALTH [id number] [facility] [id number] Samy as PROFESSIO [phone] [facility] [address] [facility] ONE 2021-03-28 2021-03-28 Shannan [facility] [id number] Univers 00:00:00 00:00:00 Chantelle Cinthya G[place] [id number] ity [facility] [id number] [phone] [facility] [address] [facility] 2021-03-17 2021-03-17 [facility] [id number] Univers 15:45:00 15:45:50 Visit Sophie GRETA [id number] [id number] [id number] [facility] [address] [facility] 2021-03-17 2021-03-17 Outpatient R EL [facility] [id number] Univers 15:45:00 15:45:50 SOPHIE hale [facility] 2021-02-23 2021-02-25 Inpatient X MARYAM [facility] MICKIE [id number] Univers 19:21:00 18:30:00 MARITA hale [facility] 2021-02-22 2021-02-22 Emergency X Teresa DOMINGUEZ [facility] ERT [id number] Univers 15:57:00 18:56:00 ity [facility] 2020-10-11 2020-10-11 [facility] [id number] Univers 16:30:00 16:30:00 WONDIFUL ity o f [facility] 2020-09-08 2020-09-08 Outpatient R BAY [facility] [id number] Univers 15:00:00 15:00:00 SENDIL [facility] 2020-08-13 2020-08-13 Outpatient R HERMOSILLO, [facility] [id number] Univers 13:30:00 14:18:00 SENDIL [facility] 2020-07-01 2020-07-01 Outpatient R KALLIE, [facility] [id number] Univers 09:43:26 23:59:00 WONDIFUL ity o f [facility] 2020-06-25 2020-06-25 Outpatient R AMY [facility] [id number] Univers 15:00:00 14:13:44 MEE [facility] 2020-06-04 2020-06-04 Outpatient R AMY [facility] [id number] Univers 15:00:00 14:22:50 MEE [facility] 2020-06-04 2020-06-04 Outpatient R KALLIE, [facility] [id number] Univers 14:00:00 14:17:16 WONDIFUL ity o f [facility] 2020-05-05 2020-05-05 Outpatient R KALLIE, [facility] [id number] Univers 16:42:30 23:59:00 WONDIFUL ity o f [facility] 2020-04-16 2020-04-16 Outpatient R ABA [facility] [id number] Univers 16:00:00 16:47:03 XENIA ity o f [facility] Results Test Description Test Time Test Results Result Source Comments Comments XR ANKLE 3+ VW No aggressive bony U [employer]iversity of RIGHT 7 destructive change or Samy as Medical 16:00:36 periosteal reaction is Br anch seen. No acute bony abnormality is present. Interval great toe amputation. I, Josias Guevara MD., have reviewed this study and agree with the abovereport.[facility], Radiant Results Inft User - 07/23/2020 11:01 AM CDTEXAM:XR FOOT 3+ VW RIGHT,EXAM:XR ANKLE 3+ VW RIGHTHISTORY:2nd to osteo COMPARISON:April 2017FINDINGS: Imaging of the foot and ankle demonstrates amputation through the first MTPjoint with unremarkable bony margins of resection. Osseous fragmentation isseen at the second and third MTP joint levels with cystic and scleroticperiarticular remodeling. Superimposed joint space widening is seen at thesecond and third MTP joints. Chronic erosions involve the fourth and fifthmetatarsal heads. No aggressive bony destructive change or periostealreaction is seen. Diabetic type vascular calcifications are present. Theankle mortise is anatomic. Calcaneal enthesophyte formation is seen. Afragmented osteophyte/avulsion remains along the dorsum of the talar head.IMPRESSIONNo aggressive bony destructive change or periosteal reaction is seen.No acute bony abnormality is present.Interval great toe amputation.IJosias MD., have reviewed this study and agree with the abovereport. XR FOOT 3+ VW No aggressive bony Un iversity of RIGHT 7 destructive change or Samy as Medical 16:00:36 periosteal reaction is Br anch seen. No acute bony abnormality is present. Interval great toe amputation. IJosias MD., have reviewed this study and agree with the abovereport.[facility], Radiant Results Inft User - 07/23/2020 11:01 AM CDTEXAM:XR FOOT 3+ VW RIGHT,EXAM:XR ANKLE 3+ VW RIGHTHISTORY:2nd to osteo COMPARISON:April 2017FINDINGS: Imaging of the foot and ankle demonstrates amputation through the first MTPjoint with unremarkable bony margins of resection. Osseous fragmentation isseen at the second and third MTP joint levels with cystic and scleroticperiarticular remodeling. Superimposed joint space widening is seen at thesecond and third MTP joints. Chronic erosions involve the fourth and fifthmetatarsal heads. No aggressive bony destructive change or periostealreaction is seen. Diabetic type vascular calcifications are present. Theankle mortise is anatomic. Calcaneal enthesophyte formation is seen. Afragmented osteophyte/avulsion remains along the dorsum of the talar head.IMPRESSIONNo aggressive bony destructive change or periosteal reaction is seen.No acute bony abnormality is present.Interval great toe amputation.IJosias MD., have reviewed this study and agree with the abovereport.
[2021-05-09] MEDS ORDERED: NA CHLORIDE 0.9% 500 ML ONE (07:56)
[2021-05-09] MEDS ORDERED: NA CHLORIDE 0.9% 1,000 ML ONE (07:56)
[2021-05-09 08:00] LABS: Absolute Lymphocytes (CBC) 1.3 K/uL (0.7-4.9); Hematocrit 42.9 % (39.6-49.0); Lymphocytes % 23.7 % (15.3-44.8); MPV 10.6 fL (7.6-11.3); Protime INR 0.97; RBC Red Blood Cell Count 4.75 M/uL (4.33-5.43)
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
[2021-05-09] MEDS ORDERED: D5 0.45 NS 1,000 ML IV ONE (08:33)
[2021-05-09 08:40] LABS: ALT/SGPT 62 U/L (12-78); Albumin 3.2 g/dL (3.4-5.0); Alkaline Phosphatase 101 U/L (45-117); BUN Blood Urea Nitrogen 20 mg/dL (7-18); Bicarbonate 23 mmol/L (21-32); Bilirubin Direct < 0.1 mg/dL (0-0.2); Bilirubin Total 0.4 mg/dL (0.2-1.0); Glucose Level 178 mg/dL (74-106); NT PRO-BNP 36 pg/mL (<125); Protein, Total 6.8 g/dL (6.4-8.2); Sodium Level 138 mmol/L (136-145)
[2021-05-09 08:41] LABS: AST/SGOT 206 U/L (15-37); Potassium 3.3 mmol/L (3.5-5.1)
[2021-05-09] MEDS ORDERED: NA CHLORIDE 0.9% 100 ML IV ONE (08:48)
[2021-05-09] MEDS ORDERED: LEVETIRACETAM 500 MG/5 ML VIAL IV ONE (08:48)
--- NOTE | 2021-05-09 08:56 | RAD REPORT ---
EXAM DESCRIPTION: RAD - Chest Single View - 05/09/2021 8:28 am CLINICAL HISTORY: CHEST PAIN COMPARISON: None TECHNIQUE: AP portable chest image was obtained 05/09/2021 8:28 am . FINDINGS: Lungs are clear. Heart and vasculature are normal. No measurable pleural effusion and no p neumothorax. No acute bony abnormality seen. No acute aortic findings suspected. IMPRESSION: No acute cardiopulmonary process.
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
[2021-05-09] MEDS ORDERED: ONDANSETRON 4 MG/2 ML VIAL IV PRN (11:47)
[2021-05-09] MEDS ORDERED: ACETAMINOPHEN 500 MG TAB PO PRN (11:47)
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
[2021-05-09] MEDS ORDERED: D5 0.45 NS 1,000 ML IV SCH (12:00)
[2021-05-09 12:46] VITALS: BMI 26.6
--- NOTE | 2021-05-09 13:42 | RAD REPORT ---
EXAM DESCRIPTION: MRI - Brain W/Wo Cont - 05/09/2021 1:30 pm CLINICAL HISTORY: Seizure COMPARISON: head CT May 09, 2021 TECHNIQUE: Axial, sagittal, and coronal magnetic images of the brain were obtained. 15 cc MultiHance administered intravenously FINDINGS: No significant abnormal signal within the brain noted. Hippocampal gyri are normal caliber and signal. The ventricles are normal in caliber. Diffusion-weighted/ ADC mapping sequences do not demonstrate evidence of an acute infarction. No abnormal enhancement within the brain is seen. An extra-axial fluid collection is not noted. Fluid within the sinuses/mastoids is not seen IMPRESSION: No acute intracranial abnormality displayed
[2021-05-09] MEDS: INSULIN -REGULAR HUMAN 50 UNIT/0.5 ML ML SQ SCH ×2 (16:30→20:23)
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
[2021-05-09] MEDS ORDERED: levETIRAcetam 500 MG TAB PO ONE (18:00)
[2021-05-09] MEDS ORDERED: INSULIN -REGULAR HUMAN 50 UNIT/0.5 ML ML ONE ×2 (18:19→20:21)
[2021-05-09] MEDS ORDERED: levETIRAcetam 500 MG TAB ONE (18:27)
[2021-05-09 19:54] LABS: Barbiturates NEGATIVE (NEGATIVE); Benzodiazepines NEGATIVE (NEGATIVE); Cocaine NEGATIVE (NEGATIVE); METHAMPHETAM POSITIVE (NEGATIVE); Methadone NEGATIVE (NEGATIVE); Opiates NEGATIVE (NEGATIVE); Phencyclidine NEGATIVE (NEGATIVE); THC Cannibis POSITIVE (NEGATIVE)
[2021-05-09 20:10] VITALS: O2SAT 98
[2021-05-10] MEDS ORDERED: ACETAMINOPHEN 500 MG TAB ONE (02:26)
[2021-05-10 02:58] LABS: Urine Appearance CLEAR (Clear); Urine Bilirubin NEGATIVE (Negative); Urine Blood NEGATIVE (Negative); Urine Color YELLOW (Yellow); Urine Glucose 3+ (Negative); Urine Protein NEGATIVE (Negative); Urine Specific Gravity >=1.030 (1.005-1.030); Urine Urobilinogen 0.2 mg/dL (0.2-1.0)
[2021-05-10 03:01] LABS: Urine Microscopic Reflex NO UMIC
[2021-05-10 03:12] LABS: Absolute Lymphocytes (CBC) 1.6 K/uL (0.7-4.9); Hematocrit 40.5 % (39.6-49.0); Lymphocytes % 22.7 % (15.3-44.8); MPV 10.4 fL (7.6-11.3); RBC Red Blood Cell Count 4.49 M/uL (4.33-5.43)
[2021-05-10 03:32] LABS: ALT/SGPT 65 U/L (12-78); AST/SGOT 123 U/L (15-37); Alkaline Phosphatase 104 U/L (45-117); BUN Blood Urea Nitrogen 16 mg/dL (7-18); Bicarbonate 25 mmol/L (21-32); Bilirubin Total 0.3 mg/dL (0.2-1.0); Glucose Level 231 mg/dL (74-106); Magnesium 2.2 mg/dL (1.8-2.4); Protein, Total 6.6 g/dL (6.4-8.2); Sodium Level 136 mmol/L (136-145); Thyroid Stimulating Hormone 0.947 uIU/mL (0.360-3.740)
[2021-05-10] MEDS: INSULIN -REGULAR HUMAN 50 UNIT/0.5 ML ML SQ SCH ×2 (08:40→12:09)
[2021-05-10] MEDS ORDERED: levETIRAcetam 500 MG TAB ONE (08:41)
[2021-05-10] MEDS ORDERED: INSULIN -REGULAR HUMAN 50 UNIT/0.5 ML ML ONE ×2 (08:42→12:11)
[2021-05-10] MEDS ORDERED: ENOXAPARIN 40 MG/0.4 ML SQ ONE (08:42)
[2021-05-10 08:50] VITALS: BP 121/79
[2021-05-10] MEDS ORDERED: ENOXAPARIN 40 MG/0.4 ML SQ SCH (09:00)
[2021-05-10] MEDS ORDERED: levETIRAcetam 500 MG TAB PO SCH (09:00)
[2021-05-10 09:10] VITALS: TEMP 97
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
--- NOTE | 2021-05-10 16:11 | EKG ---
Test Date: 2021-05-09 Test Time: 07:40:39 Proof Technician Helper: KIMBERLI MEASUREMENT RESULTS: Intervals: Rate: 79 NH: 162 QRSD: 112 QT: 430 QTc: 493 [place]: P: 36 NH: 162 QRS: 56 T: 86 INTERPRETIVE STATEMENTS: Normal sinus rhythm Anteroseptal infarct, age undetermined Abnormal ECG No previous ECG available for comparison Electronically Signed On 05-10-21 16:10:46 CLINICAL TRIALS ASSISTANT by Zachary Taylor
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
== END 2021-05-10 14:56 | disposition home or self-care (01) ==
LOC: ER 07:17 → ERHOLD 11:46
PROVIDERS: ADMIT Hospitalist; ATTEND Hospitalist
DX: E11.649 Type 2 diabetes mellitus with hypoglycemia without coma (principal); R56.9 Unspecified convulsions; M54.2 Cervicalgia; I10 Essential (primary) hypertension; V47.0XXA Car driver injured in collision with fixed or stationary object in nontraffic accident, initial encounter; Z20.822 Contact with and (suspected) exposure to COVID-19
CPT/HCPCS: 96361; 93005; 95819; 85025 ×2; 80048; 36415; 80320; 83735 ×2; 80329 ×2; 85610; 82565; 82947 ×14; 80076; 85730; 84443; 81003; 84484; 84439; 80053; 83880; 80307; 70450; 72125; 71260; 74177; 71045; 73110; 72141; 70553; 97162; 96374; 99285; U0003; Q9967; A9577; J1650; J1953; J7799; J7040; J7030; G0378 ×3